=== PATIENT | male | born 1945 | race Caucasian/White ===

== ENCOUNTER → 2017-01-23 | Outpatient (CLI) | payer OTHER ==
--- NOTE | 2017-01-23 14:21 | DIAGNOSTIC IMAGING REPORT ---
PROCEDURE: NM HEPATOBILIARY IMAGING INDICATION: Right abdominal pain. TECHNIQUE: 8 mCi technetium 99m Choletec injected intravenously. Sequential images were acquired over a 1 hour time interval. Subsequently, the patient ingested a fatty meal (milk) with images acquired over a 1 hour time interval, followed by calculation of gallbladder ejection fraction. COMPARISON: None. FINDINGS: Prompt liver uptake. Common duct and bowel activity at 12 minutes. Gallbladder is visualized at 16 minutes. Gallbladder ejection fraction is calculated at 45% (normal). IMPRESSION: 1. Normal nuclear medicine biliary scan with gallbladder ejection fraction of 45%. 2. Findings discussed with Dr. Burgess.
== END ==
LOC: NM SRH 08:49
DX: R10.11 Right upper quadrant pain (principal)